=== PATIENT | male | born 1995 | race Caucasian/White ===

== ENCOUNTER 2016-09-12 09:15 | Emergency (ER) | payer OTHER ==
--- NOTE | 2016-09-12 10:37 | ED NURSING NOTES ---
Clinical Report - Nurses [facility] [address] [place] [address] 09/12/2016 9:17 Patient: JASMIN GOTTI TRIAGE Triage time 09:Sep 12 2016. Acuity: LEVEL 3. Chief Complaint: ABDOMINAL PAIN, NAUSEA, VOMITING and DIARRHEA and (Patient says he has been having epigastric pain for about a month with N/V, diarrhea and constipation comes and goes). 09:34 09/12/16. SEPSIS SCREEN: Sepsis Screen. Negative (no infection suspected/documented). NNEKA COMA SCORE: Nneka Coma Scale: 15- eyes open spontaneously (4); best verbal response- oriented x 4 (5); best motor response- obeys commands (6). --09:34 Catherine Alfaro R.N. 09:26 09/12/16. BP: 113/57 (regular adult cuff) taken on the left arm, while sitting. HR: 67. RR: 16 (regular). O2 saturation: 100% on room air. Temp: 97.6 F (oral). Pain level now: 4/10. Additional comments: epigastric usually more in mornings. --09:34 Catherine Alfaro R.N. Weight: 68 kg stated. Height/Length: 71 inches Per Patient. BMI: 20.9. --09:27 Catherine Alfaro R.N. Medications None. --09:27 Catherine Alfaro R.N. Allergies No Known Drug Allergy. --09:27 Catherine Alfaro R.N. History Arrived by private vehicle. Historian: patient. Accompanied by friend. Onset. (Month ago). He has had nausea, vomiting, diarrhea, constipation and abdominal pain. Last oral intake by patient was (last night at dinner). 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 PAST MEDICAL HX: Gastroesophageal reflux disease. ( Gastric ulcer hx). SOCIAL HX: Never smoker. History of heavy drug use: marijuana. Recently used drugs just prior to arrival. No alcohol use. No recent travel. No infectious disease exposure. No known contact with a sick individual. ABUSE ASSESSMENT: No report of abuse. --09:34 Catherine Alfaro R.N. PROBLEMS: Gastritis. Otitis Media. Hypertension. ADHD - Attention Deficit Hyperactivity Disorder. --09:27 Catherine Alfaro R.N. ADDITIONAL SURGERIES: no known surgeries. Interventions ID band on patient. To treatment room. --09:34 Catherine Alfaro R.N. PHYSICAL ASSESSMENT 09:35 09/12/16. Ambulatory to room. GENERAL / NEURO / PSYCH: Alert. Oriented X 4. HEENT: Mucous membranes are pink. RESPIRATORY: Respirations not labored. Breath sounds within normal limits. CVS: Capillary refill less than 2 seconds. GI / : Emesis noted. (yellow 24 hours ago). Abdomen soft and nontender. Bowel sounds within normal limits. Stool color normal. SKIN: Skin is warm. --09:36 Catherine Alfaro R.N. NURSING PROGRESS NOTES The plan of care for this patient has been created. Patient gowned. Head of bed elevated. Reassurance given. Two patient identifiers checked. Call light placed in reach. Side rails up x 1. Bed placed in lowest position. Brakes of bed on. Patient ready for evaluation- chart flagged and ED physician notified. --09:36 Catherine Alfaro R.N. 10:08 09/12/2016 GI COCKTAIL WHITE (Simethicone) PO Oral Suspension 30 mL given. Allergies verified and confirmed 5 rights. --10:08 Catherine Alfaro R.N. ( Patient feels much better at this time, he says he is now starting to get hungry.). --10:42 Catherine Alfaro R.N. 10:40 09/12/16. BP: 125/57 (regular adult cuff) taken on the left arm, while sitting. HR: 90. RR: 16 (regular). O2 saturation: 100% on room air. Pain level now: 0/10. --10:42 Catherine Alfaro R.N. 10:20 09/12/16. HR: 85. RR: 16 (regular). O2 saturation: 100% on room air. Pain level now: 0/10. --10:43 Catherine Alfaro R.N. DISPOSITION / DISCHARGE 11:02 09/12/2016 GI COCKTAIL WHITE PO Response: no adverse reaction pain is gone now. Symptoms have improved the patient feels better. --11:17 Catherine Alfaro R.N. Condition at departure: improved. No learning barriers present. Discharge instructions provided and reviewed with the patient. Reviewed medication(s) side effects, precautions and dosing information. Work note given. Patient verbalized understanding. Written instructions provided in B[place]udian. The patient was discharged by the physician. He was discharged home and accompanied by manager portable. He left the Emergency Department ambulatory and via private vehicle. Electrician Maintenance driving. --11:17 Catherine Alfaro R.N. 11:15 09/12/16. BP: 126/62 (regular adult cuff) taken on the left arm, while sitting. HR: 74. RR: 16. O2 saturation: 99% on room air. Temp: 98.3 F (oral). Pain level now: 06/22. --11:17 Catherine Alfaro R.N. Locked/Released at 09/12/2016 11:17 by Catherine Alfaro R.N.
--- NOTE | 2016-09-12 10:37 | ED ORDER SUMMARY ---
..... Patient: JASMIN GOTTI OrderSheet [facility] VisitID: [id number] [place] [address] 21y, M Registration Date/Time: 09/12/2016 ORDER SHEET Weight: 68.0 kg (stated) Allergies: No Known Drug Allergy GENERAL ORDERS: MEDICATION ORDERS: GI Cocktail WHITE PO 30 mL (NOW) (09:47 09/12/2016 Portillo Brown) (10:08 Allie Bell) IV FLUIDS: ORDER SHEET NOTES: [Electronically signed by Juan Oconnell Dr. (10:38 09/12/2016)] [Electronically signed by Catherine Alfaro R.N. (11:17 09/12/2016)] [Electronically locked/signed by Catherine Alfaro R.N. (11:17 09/12/2016)]
--- NOTE | 2016-09-12 10:37 | ED ORDER SUMMARY ---
..... Patient: JASMIN GOTTI OrderSheet [facility] VisitID: [id number] [place] [address] 21y, M Registration Date/Time: 09/12/2016 ORDER SHEET Weight: 68.0 kg (stated) Allergies: No Known Drug Allergy GENERAL ORDERS: MEDICATION ORDERS: GI Cocktail WHITE PO 30 mL (NOW) (09:47 09/12/2016 Portillo Brown) (10:08 Allie Bell) IV FLUIDS: ORDER SHEET NOTES: [Electronically signed by Juan Oconnell Dr. (10:38 09/12/2016)] [Electronically signed by Catherine Alfaro R.N. (11:17 09/12/2016)] [Electronically locked/signed by Catherine Alfaro R.N. (11:17 09/12/2016)]
--- NOTE | 2016-09-12 10:37 | ED CLINICAL REPORT ---
Clinical Report - Physicians/Mid Levels [facility] [address] [place] [address] 09/12/2016 9:17 Patient: JASMIN GOTTI Time Seen: 930. Arrived- By private vehicle. Historian- patient. HISTORY OF PRESENT ILLNESS Chief Complaint: ABDOMINAL PAIN. At its maximum, severity described as mild. When seen in the E.D., severity described as mild. It is described as dull. No radiation. It is described as located in the upper abdomen. This started past month and is still present (staying the same). It was gradual in onset and has been constant and waxing/waning but is not gone now. The patient has had nausea. No loss of appetite or diarrhea. He has had moderate vomiting (now resolved). The vomiting has occurred several times. No bilious emesis, feculent emesis, blood-tinged emesis, coffee-grounds emesis or frankly bloody emesis. No unusually dark emesis. No additional abdominal pain. No recent travel. Similar symptoms previously: Several times (reports hx of "ulcers"). Recent medical care: Not recently seen/assessed. REVIEW OF SYSTEMS No constipation, black stools, hematemesis or bloody stools. All systems otherwise negative, except as recorded above. PAST HISTORY See nurses notes. SOCIAL HISTORY Never smoker. History of occasional drug use: marijuana. No alcohol use. No recent travel. Is a local resident. FAMILY HISTORY (father with "stomach" probles but not sure exactly what). ADDITIONAL NOTES The nursing notes have been reviewed. PHYSICAL EXAM Vital Signs: 09/12/2016 09:26 BP: 113/57. HR: 67. RR: 16. O2 saturation: 100%. Temp: 97.6 F. Pain level now: 4/10. Blood pressure normal. Oxygen saturation normal. Appearance: Alert. Oriented X3. No acute distress. (long red hair. resting in bed. polite, cooperative). Eyes: Pupils equal, round and reactive to light. Eyes normal inspection. No pale conjunctivae. ENT: Ears normal. Nose normal. Pharynx normal. Neck: Normal inspection. Neck supple. CVS: Normal heart rate and rhythm. Heart sounds normal. Pulses normal. Respiratory: No respiratory distress. Breath sounds normal. Chest nontender. Abdomen: Soft and nontender. Bowel sounds normal. Skin: Skin warm and dry. Normal skin color. No rash. Normal skin turgor. Extremities: Extremities exhibit normal ROM. No lower extremity edema. PROGRESS AND PROCEDURES Course of Care: the patient is a pleasant 23-year-old male presenting for evaluation of epigastric abdominal pain. Symptoms have been ongoing for the past month and dull in nature. Patient reports history of peptic ulcer disease. Because of the patient's past history and relativelylow severity of symptoms, offered patient an extensive laboratory workup and ultrasound versus symptom control alone. Patientrequested symptom treatment home. I discussion patient in regards to further workup and studies if he symptoms do not significantly improve with the medications provided here in the emergency department. Patient was agreeable to this. Patient was reevaluated after the GI cocktail as been given. Patient reports significant improvement with his symptoms and does not have any pain anymore. Vital signs here in the emergency Department unremarkable. No signs of gastrointestinal bleeding. No signs of anemia. Vital signs are unremarkable. Do not feel patient requires further emergency department workup for evaluation. Had long discussion with patient in regards tosymptoms of GI bleed and reasons to return to the emergency department including his diagnosis, workup, home care, and follow-up. All questions have been answered. Patient expressed understanding of these instructions and was agreeable to them. Prior to patient's discharge from the emergency department his abdominal exam is benign and patient is resting in bed and in no acute distress. Patient is requesting a note from work today. Disposition: Discharged. Condition: good. CLINICAL IMPRESSION Acute epigastric abdominal pain. 09/12/2016 09:26 BP: 113/57. HR: 67. RR: 16. O2 saturation: 100%. Temp: 97.6 F. Pain level now: 4/10. Blood pressure normal. Oxygen saturation normal. Acute gastric ulcer disease. No GI bleeding or perforation. INSTRUCTIONS Off work today. Warnings: GENERAL WARNINGS: Return or contact your physician immediately if your condition worsens or changes unexpectedly, if not improving as expected, or if other problems arise. SPECIFICALLY, return if you develop pain, fever, vomiting, the inability to keep fluids down, blood in vomitus, blood in diarrhea, fainting or lightheadedness. coffee-ground vomiting or black tarry colored stool. Your Current Medications: CONTINUE TAKING THE FOLLOWING MEDICATIONS: None*. Prescription Medications: Pepcid 20 mg: take 1 orally every 12 hours as needed for indigestion, upset stomach or heartburn. Dispense thirty (30). No refills. Substitution is permissible. OTC Medications: Tums chewable tabs (available over the counter): take according to label instructions. Follow-up: Return to the emergency department as needed. Follow up with your doctor in three days. Reason for referral: rechecked it is concerns. Summary of care provided to patient via paper. Screening today revealed the patient's blood pressure to be in the normal range. The patient should follow up with a primary care provider for blood pressure management. Understanding of the discharge instructions verbalized by patient. (Electronically signed by Juan Oconnell Dr. 09/12/2016 10:38)
--- NOTE | 2016-09-12 10:37 | ED NURSING NOTES ---
Clinical Report - Nurses [facility] [address] [place] [address] 09/12/2016 9:17 Patient: JASMIN GOTTI TRIAGE Triage time 09:Sep 12 2016. Acuity: LEVEL 3. Chief Complaint: ABDOMINAL PAIN, NAUSEA, VOMITING and DIARRHEA and (Patient says he has been having epigastric pain for about a month with N/V, diarrhea and constipation comes and goes). 09:34 09/12/16. SEPSIS SCREEN: Sepsis Screen. Negative (no infection suspected/documented). NNEKA COMA SCORE: Nneka Coma Scale: 15- eyes open spontaneously (4); best verbal response- oriented x 4 (5); best motor response- obeys commands (6). --09:34 Catherine Alfaro R.N. 09:26 09/12/16. BP: 113/57 (regular adult cuff) taken on the left arm, while sitting. HR: 67. RR: 16 (regular). O2 saturation: 100% on room air. Temp: 97.6 F (oral). Pain level now: 4/10. Additional comments: epigastric usually more in mornings. --09:34 Catherine Alfaro R.N. Weight: 68 kg stated. Height/Length: 71 inches Per Patient. BMI: 20.9. --09:27 Catherine Alfaro R.N. Medications None. --09:27 Catherine Alfaro R.N. Allergies No Known Drug Allergy. --09:27 Catherine Alfaro R.N. History Arrived by private vehicle. Historian: patient. Accompanied by friend. Onset. (Month ago). He has had nausea, vomiting, diarrhea, constipation and abdominal pain. Last oral intake by patient was (last night at dinner). 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 PAST MEDICAL HX: Gastroesophageal reflux disease. ( Gastric ulcer hx). SOCIAL HX: Never smoker. History of heavy drug use: marijuana. Recently used drugs just prior to arrival. No alcohol use. No recent travel. No infectious disease exposure. No known contact with a sick individual. ABUSE ASSESSMENT: No report of abuse. --09:34 Catherine Alfaro R.N. PROBLEMS: Gastritis. Otitis Media. Hypertension. ADHD - Attention Deficit Hyperactivity Disorder. --09:27 Catherine Alfaro R.N. ADDITIONAL SURGERIES: no known surgeries. Interventions ID band on patient. To treatment room. --09:34 Catherine Alfaro R.N. PHYSICAL ASSESSMENT 09:35 09/12/16. Ambulatory to room. GENERAL / NEURO / PSYCH: Alert. Oriented X 4. HEENT: Mucous membranes are pink. RESPIRATORY: Respirations not labored. Breath sounds within normal limits. CVS: Capillary refill less than 2 seconds. GI / : Emesis noted. (yellow 24 hours ago). Abdomen soft and nontender. Bowel sounds within normal limits. Stool color normal. SKIN: Skin is warm. --09:36 Catherine Alfaro R.N. NURSING PROGRESS NOTES The plan of care for this patient has been created. Patient gowned. Head of bed elevated. Reassurance given. Two patient identifiers checked. Call light placed in reach. Side rails up x 1. Bed placed in lowest position. Brakes of bed on. Patient ready for evaluation- chart flagged and ED physician notified. --09:36 Catherine Alfaro R.N. 10:08 09/12/2016 GI COCKTAIL WHITE (Simethicone) PO Oral Suspension 30 mL given. Allergies verified and confirmed 5 rights. --10:08 Catherine Alfaro R.N. ( Patient feels much better at this time, he says he is now starting to get hungry.). --10:42 Catherine Alfaro R.N. 10:40 09/12/16. BP: 125/57 (regular adult cuff) taken on the left arm, while sitting. HR: 90. RR: 16 (regular). O2 saturation: 100% on room air. Pain level now: 0/10. --10:42 Catherine Alfaro R.N. 10:20 09/12/16. HR: 85. RR: 16 (regular). O2 saturation: 100% on room air. Pain level now: 0/10. --10:43 Catherine Alfaro R.N. DISPOSITION / DISCHARGE 11:02 09/12/2016 GI COCKTAIL WHITE PO Response: no adverse reaction pain is gone now. Symptoms have improved the patient feels better. --11:17 Catherine Alfaro R.N. Condition at departure: improved. No learning barriers present. Discharge instructions provided and reviewed with the patient. Reviewed medication(s) side effects, precautions and dosing information. Work note given. Patient verbalized understanding. Written instructions provided in Uruguayan. The patient was discharged by the physician. He was discharged home and accompanied by commercial credit head. He left the Emergency Department ambulatory and via private vehicle. Offline Cutter driving. --11:17 Catherine Alfaor R.N. 11:15 09/12/16. BP: 126/62 (regular adult cuff) taken on the left arm, while sitting. HR: 74. RR: 16. O2 saturation: 99% on room air. Temp: 98.3 F (oral). Pain level now: 06/22. --11:17 Catherine Alfaro R.N. Locked/Released at 09/12/2016 11:17 by Catherine Alfaro R.N.
--- NOTE | 2016-09-12 11:18 | ED DISCHARGE INSTRUCTIONS ---
Patient: JASMIN GOTTI General Instructions [facility] VisitID: [id number] [place] [address] 21y, M Registration Date/Time: 09/12/2016 Acute epigastric abdominal pain. 09/12/2016 09:26 BP: 113/57. HR: 67. RR: 16. O2 saturation: 100%. Temp: 97.6 F. Pain level now: 4/10. Blood pressure normal. Oxygen saturation normal. Acute gastric ulcer disease. No GI bleeding or perforation. INSTRUCTIONS Off work today. Warnings: GENERAL WARNINGS: Return or contact your physician immediately if your condition worsens or changes unexpectedly, if not improving as expected, or if other problems arise. SPECIFICALLY, return if you develop pain, fever, vomiting, the inability to keep fluids down, blood in vomitus, blood in diarrhea, fainting or lightheadedness. coffee-ground vomiting or black tarry colored stool. Your Current Medications: CONTINUE TAKING THE FOLLOWING MEDICATIONS: None*. Prescription Medications: Pepcid 20 mg: take 1 orally every 12 hours as needed for indigestion, upset stomach or heartburn. Dispense thirty (30). No refills. Substitution is permissible. OTC Medications: Tums chewable tabs (available over the counter): take according to label instructions. Follow-up: Return to the emergency department as needed. Follow up with your doctor in three days. Reason for referral: rechecked it is concerns. Summary of care provided to patient via paper. Screening today revealed the patient's blood pressure to be in the normal range. The patient should follow up with a primary care provider for blood pressure management. Understanding of the discharge instructions verbalized by patient. ADDITIONAL INFORMATION Abdominal Pain,Uncertain Cause [Male] Based on your visit today, the exact cause of your abdominalpain is not clear. Your exam and tests do not indicate a dangerous cause at this time. However, the signs of a serious problem may take more time to appear. Although your evaluation was reassuring today, sometimes early in the course of many conditions, exam and lab tests can appear normal. Therefore, it is important for you to watch for any new symptoms or worsening of your condition. Causes It may not be obvious what caused your symptoms. Pay attention to things that do seem to make your symptoms worse or better and discuss this with your doctor when you follow up. Diagnosis The evaluation of abdominal pain in the emergency department may onlyrequire an exam by the doctor or it may include blood, urine or imaging studies, depending on many factors. Sometimes exams and tests can identify a cause but in many cases, a clear cause is not found. Further testing at follow up visits may help to suggest a clear diagnosis. Home Care Rest as much as possible until your next exam. Try to avoid any medications (unless otherwise directed by your doctor), foods, activities, or other factors that you may have contributed to your symptoms. Try to eat foods that you know that you have tolerated well in the past. Certain diets may be recommended for some conditions that cause abdominal pain. However, since the cause of your symptoms may not be clear, discuss your diet more with your primary care provider or specialist for further recommendations. Eating several small meals per day as opposed to 2 or 3 larger meals may help. Monitor closely for anything that may make your symptoms worse or better. Pay close attention to symptoms below that may indicate worsening of your condition. Follow Up and Precautions See your doctoras instructed or sooneror if your symptoms are not improving.In some cases, you may need more testing. When to Seek Medical Attention Contact your doctor or see medical attention ifany of the following occur: Pain is becoming worse You are unable to take your medications due to excessive vomiting Swelling of the abdomen Fever of 100.4F (38C) or higher, or as directed by your health care provider Blood in vomit or bowel movements (dark red or black color) Jaundice (yellow color of eyes and skin) New onset of weakness, dizziness or fainting New onset of chest, arm, back, neck or jaw pain Gastritis Versus Ulcer (No Antibiotic Tx) The symptoms of gastritis and peptic ulcer are very similar. Both can cause a dull ache or burning pain in the upper abdomen. Other symptoms include nausea, vomiting, loss of appetite, and belching or bloating. Blood in the vomit or stools (red or black) is a sign of bleeding in the stomach. This requires immediate medical attention. A Peptic Ulcer is an open sore in the lining of the stomach or duodenum (upper intestine). The most common cause of peptic ulcer disease is a bacterial infection (H pylori) in the stomach. Another common cause is taking anti-inflammatory medications (such as ibuprofen, prednisone, and aspirin). Gastritis is an irritation of the stomach lining. It can be acute (recent) or chronic (lasting a long time). Gastritis can be caused by overuse of alcohol or anti-inflammatory medications (such as aspirin, ibuprofen, prednisone). H pyloriinfection can also cause chronic gastritis. Tests for H pyloriare used to screen for bacterial infection. If no infection is found, ulcer and gastritis can be treated by stopping the cause, such as anti-inflammatory medications, alcohol, caffeine, and tobacco, and treating with antacids plus an acid edwrad medication. If H pylori infection is found, antibiotics will be prescribed along with an acid edward. Persons 55 years and older may undergo other tests before treatment is started. Two common tests are used to evaluate your symptoms. An upper GI series is an x-ray taken after you drink a chalky liquid called barium. This coats the stomach and allows an ulcer to show up on the x-ray. Another test is called endoscopy during which a long thin tube called an endoscope is passed down your throat to the stomach. A camera at the end of the scope allows the doctor to view inside the stomach to check the cause of your symptoms. Home Care: Take the prescribed acid edward medication for the full course of treatment even if you begin to feel better sooner. This medication can take up to several days to fully control your symptoms. If you cant afford the prescribed medication, you can try [id number] acid blockers, such as Pepcid AC, Tagamet, Zantac, or Aciphex. If these do not relieve your symptoms, a stronger acid-edward can be tried, such as Prilosec OTC. If you have been prescribed an antibiotic to treat H pyloriinfection, finish the full course of medication. Do so even if you begin to feel better sooner. If you stop the medication too soon, the infection can return and be harder to treat. You can use antacids, such as Tums, Rolaids, Mylanta, or Maalox, for pain. This will be useful the first few days after starting acid blockers when the blockers havent started working yet. Follow the directions on the label. Liquid antacids may work better than tablets. Note that antacids can interfere with absorption of certain medications. Specifically, do not take Tagamet (cimetidine), Zantac (ranitidine), or Carafate (sucralfate) within 1 hour of taking an antacid. Talk with your pharmacist if you have any questions. Although foods do not cause an ulcer, symptoms can be worsened by certain foods. Limit or avoid fatty, fried, and spicy foods, as well as coffee, chocolate, mint, and foods with high acid content such as tomatoes and citrus fruit and juices (orange, grapefruit, lemon). Avoid alcohol, caffeine, and tobacco, which can delay healing. Avoid aspirin and anti-inflammatory medications such as ibuprofen (Advil, Motrin) and naproxen (Naprosyn, Aleve). Acetaminophen (Tylenol) is safe to use. Do not take more than the amount listed on the label. Follow Up with your doctor or as advised. Further testing may be needed. If you do not begin to improve over the next 4 days, contact your doctor. If you had tests, youll be notified of any new findings that affect your care. Get Prompt Medical Attention if any of the following occur: Stomach pain gets worse or moves to the lower right abdomen (appendix area) Chest pain appears or gets worse, or spreads to the back, neck, shoulder, or arm Frequent vomiting (cant keep down liquids) Blood in the stool or vomit (red or black in color) Feeling weak or dizzy, fainting, or trouble breathing Fever of 100.4F (38C) or higher, or as directed by your healthcare provider Famotidine Oral tablet What is this medicine? FAMOTIDINE (fa KAMRYN ti robby) is a type of antihistamine that blocks the release of stomach acid. It is used to treat stomach or intestinal ulcers. It can also relieve heartburn from acid reflux. How should I use this medicine? Take this medicine by mouth with a glass of water. Follow the directions on the prescription label. If you only take this medicine once a day, take it at bedtime. Take your doses at regular intervals. Do not take your medicine more often than directed. Talk to your casing operator regarding the use of this medicine in children. Special care may be needed. What side effects may I notice from receiving this medicine? Side effects that you should report to your doctor or health animal care supervisor as soon as possible: agitation, nervousness confusion hallucinations skin rash, itching Side effects that usually do not require medical attention (report to your doctor or health animal care supervisor if they continue or are bothersome): constipation diarrhea dizziness headache What may interact with this medicine? delavirdine itraconazole ketoconazole What if I miss a dose? If you miss a dose, take it as soon as you can. If it is almost time for your next dose, take only that dose. Do not take double or extra doses. Where should I keep my medicine? Keep out of the reach of children. Store at room temperature between 15 and 30 degrees C (59 and 86 degrees F). Do not freeze. Throw away any unused medicine after the expiration date. What should I tell my health care provider before I take this medicine? They need to know if you have any of these conditions: kidney or liver disease trouble swallowing an unusual or allergic reaction to famotidine, other medicines, foods, dyes, or preservatives or trying to get breast-feeding What should I watch for while using this medicine? Tell your doctor or health animal care supervisor if your condition does not start to get better or if it gets worse. Finish the full course of tablets prescribed, even if you feel better. Do not take with aspirin, ibuprofen or other antiinflammatory medicines. These can make your condition worse. Do not smoke cigarettes or drink alcohol. These cause irritation in your stomach and can increase the time it will take for ulcers to heal. If you get black, tarry stools or vomit up what looks like coffee grounds, call your doctor or health animal care supervisor at once. You may have a bleeding ulcer. You have been given the following additional information: Abdominal Pain, Unknown Cause, (Male) Gastritis Vs. Ulcer Famotidine Oral tablet Off work today. (Electronically signed by Juan Oconnell Dr. 09/12/2016 10:38)
--- NOTE | 2016-09-12 11:18 | ED MED RECONCILIATION SUMMARY ---
Patient: JASMIN GOTTI Medication Reconciliation Report [facility] VisitID: [id number] [place] [address] 21y, M Registration Date/Time: 09/12/2016 Weight: 68.0 kg Height/Length: 71 in. BMI: 20.9 ALLERGIES: No Known Drug Allergy The patient's Home Medications are listed below: NONE. The source(s) of the original Home Medication information: Not obtained. The following Medications were given to the patient in the Emergency Department: GI COCKTAIL WHITE [PO] PO 30 mL, administered: 09/12/2016 10:08:00 AM The following Medications were prescribed to the patient: Pepcid 20 mg: take 1 orally every 12 hours as needed for indigestion, upset stomach or heartburn. Dispense thirty (30). No refills. Substitution is permissible. -- Juan Oconnell Dr. Tumlliia chewable tabs (available over the counter): take according to label instructions. -- Juan Oconnell Dr.
--- NOTE | 2016-09-12 11:18 | ED MAR SUMMARY ---
..... Medication Administration Record [facility] [address] [place] [address] Patient: JASMIN GOTTI Visit ID: [id number] 21y, M Weight: 68.0 kg Height/Length: 71 in BMI: 20.9 ALLERGIES: No Known Drug Allergy Given 10:08 09/12/2016 Catherine Alfaro R.N. Medication Administered: GI COCKTAIL WHITE [PO] (SIMETHICONE), Dose: 30 mL Oral Suspension PO. Medication Ordered: GI Cocktail WHITE PO 30 mL (NOW).
--- NOTE | 2016-09-12 11:18 | ED MED RECONCILIATION SUMMARY ---
Patient: JASMIN GOTTI Medication Reconciliation Report [facility] VisitID: [id number] [place] [address] 21y, M Registration Date/Time: 09/12/2016 Weight: 68.0 kg Height/Length: 71 in. BMI: 20.9 ALLERGIES: No Known Drug Allergy The patient's Home Medications are listed below: NONE. The source(s) of the original Home Medication information: Not obtained. The following Medications were given to the patient in the Emergency Department: GI COCKTAIL WHITE [PO] PO 30 mL, administered: 09/12/2016 10:08:00 AM The following Medications were prescribed to the patient: Pepcid 20 mg: take 1 orally every 12 hours as needed for indigestion, upset stomach or heartburn. Dispense thirty (30). No refills. Substitution is permissible. -- Juan Oconnell Dr. Tumlilia chewable tabs (available over the counter): take according to label instructions. -- Juan Oconnell Dr.
--- NOTE | 2016-09-12 11:18 | ED MAR SUMMARY ---
..... Medication Administration Record [facility] [address] [place] [address] Patient: JASMIN GOTTI Visit ID: [id number] 21y, M Weight: 68.0 kg Height/Length: 71 in BMI: 20.9 ALLERGIES: No Known Drug Allergy Given 10:08 09/12/2016 Catherine Alfaro R.N. Medication Administered: GI COCKTAIL WHITE [PO] (SIMETHICONE), Dose: 30 mL Oral Suspension PO. Medication Ordered: GI Cocktail WHITE PO 30 mL (NOW).
== END 2016-09-12 11:17 | disposition home or self-care (01) ==
LOC: ED SRH 09:15
DX: K25.3 Acute gastric ulcer without hemorrhage or perforation (principal); R10.13 Epigastric pain

== ENCOUNTER 2016-11-25 10:08 | Emergency (ER) | payer OTHER ==
--- NOTE | 2016-11-25 13:22 | DIAGNOSTIC IMAGING REPORT ---
PROCEDURE: ABDOMEN/PELVIS WITH CONTRAST CLINICAL INDICATION: Rectal bleeding, no pain. TECHNIQUE: 125 ml of Isovue 300 were injected intravenously and axial images were obtained of the abdomen and pelvis with sagittal and coronal reformations. COMPARISON: None. FINDINGS: ABDOMEN: Clear lung bases. Normal sized heart. No hiatal hernia. The liver, gallbladder, adrenal glands, kidneys, pancreas and spleen are normal. The abdominal aorta is normal in its course and caliber. No atherosclerosis. There are no suspicious calcifications, retroperitoneal adenopathy or masses. The stomach , upper bowel loops, and mesentery are normal. Intact anterior abdominal wall. No free fluid or inflammation. PELVIS: The appendix and pelvic small bowel loops are normal. Small amount of normal solid stool in the cecum and in the proximal portion of the rectum. The rest of the colon is completely decompressed. No significant pericolonic inflammation. The prostate gland, seminal vesicles, urinary bladder, and pelvic vessels are normal. No adenopathy, free fluid, or pelvic mass. Intact osseous structures. IMPRESSION: 1. Near complete decompression of the colon without significant inflammation. This is nonspecific, can be physiologic, but can also be seen in response to occult hemorrhage. No CT evidence of acute colitis or diverticulosis. Occult inflammatory process cannot be excluded with the colon decompressed. Colonoscopy is recommended. 2. Otherwise unremarkable CT of the abdomen and pelvis. 3. Discussed with Dr. Landis in the emergency room. All CT scans at this facility use dose modulation, iterative reconstruction, and/or weight-based dosing when appropriate to reduce radiation dose to as low as reasonably achievable.
--- NOTE | 2016-11-25 15:40 | ED ORDER SUMMARY ---
..... Patient: JASMIN GOTTI OrderSheet [facility] VisitID: [id number] [place] [address] 21y, M Registration Date/Time: 11/25/2016 ORDER SHEET Weight: 68.0 kg (stated) Allergies: No Known Drug Allergy GENERAL ORDERS: CBC w Diff Urgent (11:11/25/2016 Racheal Brown) (Ack 11:12 TBergley) (11:21 DDean R.N.) CMP Urgent (11:11/25/2016 Racheal Brown) (Ack 11:12 TBergley) (11:21 DDean R.N.) UA-Culture if indicated Urgent (11:11/25/2016 Racheal Brown) (Ack 11:12 TBergley) (14:50 LAbe R.N.) PT with INR Urgent (11:11/25/2016 Racheal Brown) (Ack 11:12 TBergley) (11:21 DDean R.N.) PTT Urgent (11:11/25/2016 Racheal Brown) (Ack 11:12 TBergley) (11:21 DDean R.N.) CT Abd/Pel w Cont (No) (N/A) Urgent (12:11/25/2016 Racheal Brown) (Ack 12:21 TBergley) (14:50 LAbe R.N.) MEDICATION ORDERS: IV FLUIDS: Famotidine IV 20 mg/50mL (NOW) (11:11/25/2016 Racheal Brown) (Ack 11:39 Valorie R.N.) (11:51 Valorie R.N.) IV Saline Lock (11:11/25/2016 Racheal Brown) (11:39 Valorie R.N.) ORDER SHEET NOTES: [Electronically signed by Mariya Manzo R.N. (17:33 11/25/2016)] [Electronically signed by Yoshi Landis Dr. (23:16 11/26/2016)] [Electronically locked/signed by Mariya Manzo R.N. (17:33 11/25/2016)]
--- NOTE | 2016-11-25 15:40 | ED NURSING NOTES ---
Clinical Report - Nurses [facility] [address] [place] [address] 11/25/2016 10:09 Patient: JASMIN GOTTI TRIAGE Triage time 10:19. Acuity: LEVEL 3. Chief Complaint: RECTAL BLEED. Alert. No acute distress. YANIV COMA SCORE: [place] Coma Scale: 15- eyes open spontaneously (4); best verbal response- oriented x 4 (5); best motor response- obeys commands (6). --10:24 Mariya Manzo R.N. 10:19 11/25/16. BP: 119/65. HR: 60. RR: 18. O2 saturation: 100%. Temp: 97.6 F. Pain level now: 06/22. --10:24 Mariya Manzo R.N. Weight: 68 kg stated. Height/Length: 72 inches Per Patient. BMI: 20.3. --10:21 Mariya Manzo R.N. Medications Acetaminophen Oral. --10:20 Mariya Manzo R.N. Medication/allergy information source: the patient. --10:24 Mariya Manzo R.N. Allergies No Known Drug Allergy. --10:20 Mariya Manzo R.N. History Arrived by private vehicle. Historian: patient. Accompanied by family. Primary physician (none). This started today. SOCIAL HX: Never smoker. Occasional alcohol use. (recently). History of drug use: marijuana. FALL RISK ASSESSMENT: Fall risk assessment completed. No fall risk identified. FUNCTIONAL ASSESSMENT: Functional assessment: no impairments noted. LEARNING NEEDS ASSESSMENT: The learning needs assessment revealed no barriers. --10:24 Mariya Manzo R.N. PROBLEMS: Peptic Ulcer Disease. Abdominal Pain. Gastroesophageal Reflux Disease. Gastritis. Otitis Media. Hypertension. Immunizations. ADHD - Attention Deficit Hyperactivity Disorder. --10:21 Mariya Manzo R.N. ADDITIONAL SURGERIES: no known surgeries. Assessment GENERAL / NEURO / PSYCH: Alert. Oriented X 4. Appears in no acute distress. Patient appears calm and cooperative. RESPIRATORY: Respirations not labored. SKIN: Skin is warm and dry. --10:24 Mariya Manzo R.N. Interventions ID band on patient. To treatment room. --10:24 Mariya Manzo R.N. PHYSICAL ASSESSMENT 10:53 11/25/16. Ambulatory to room. Patient gowned. GENERAL / NEURO / PSYCH: Alert. Oriented X 4. Appears in no acute distress. RESPIRATORY: Respirations not labored. SKIN: Skin is warm and dry. --10:53 Mariya Manzo R.N. NURSING PROGRESS NOTES 10:53 11/25/16. Patient gowned. Head of bed elevated. Reassurance given. Call light placed in reach. Side rails up x 1. Bed placed in lowest position. Brakes of bed on. --10:53 Mariya Manzo R.N. 10:54 11/25/2016 Site #1 started via IV in the right antecubital space with an 18g angiocath, with aseptic technique and good blood return; one attempt. Blood drawn: rainbow set. Labeled in the presence of the patient and sent to the lab. Saline lock flushed with 10 mL saline (Blood Banded). --10:54 Mariya Manzo R.N. 11:51 11/25/2016 Started 20 mg of Famotidine IVPB in bag #1 50 mL; at 150 mL/hr over 20 minute(s) via site #1; Allergies verified and confirmed 5 rights. IV patency established. IV site checked: no pain, redness, or swelling. IV flushed thoroughly pre- and post-medication administration. --11:51 Mariya Manzo R.N. 12:10 11/25/16. The patient is resting quietly. Overall patient status is the same- he states feels the same. RESPIRATORY: No respiratory distress. SKIN: Skin is warm and dry. --12:10 Mariya Manzo R.N. 12:10 11/25/16. BP: 115/58. HR: 86. RR: 16. O2 saturation: 100% on room air. --12:10 Mariya Manzo R.N. 12:10. :patient confirmed. Clean catch urine collected; sample sent to lab. Specimen labeled in the presence of the patient (voided 300 ml per urinal). --12:32 Mariya Manzo R.N. 13:50. Informed about reason for wait (discharge plan). --14:25 Mariya Manzo R.N. 14:50. The patient is resting quietly. --16:34 Mariya Manzo R.N. 15:50. The patient is calm and resting quietly. Overall patient status is the same- he states feels the same. RESPIRATORY: No respiratory distress. SKIN: Skin is warm and dry. --16:35 Mariya Manzo R.N. DISPOSITION / DISCHARGE Departure time: 1550. Condition at departure: stable. No learning barriers present. Discharge instructions provided and reviewed with the patient. Patient verbalized understanding. Written instructions provided in [place]. The patient was discharged home and accompanied by collection card clerk. He left the Emergency Department ambulatory and via private vehicle. FALL RISK ASSESSMENT: Fall risk assessment completed. No fall risk identified. --16:36 Mariya Manzo R.N. 15:50 11/25/16. BP: 117/59. HR: 65. RR: 16. O2 saturation: 100%. Pain level now: 07/23. --16:36 Mariya Manzo R.N. Locked/Released at 11/25/2016 17:33 by Mariya Manzo R.N.
--- NOTE | 2016-11-25 15:40 | ED CLINICAL REPORT ---
Clinical Report - Physicians/Mid Levels [facility] [address] [place] [address] 11/25/2016 10:09 Patient: JASMIN GOTTI Time Seen: 10:39; initial patient contact. Arrived- By private vehicle. Historian- patient. HISTORY OF PRESENT ILLNESS Chief Complaint: RECTAL BLEEDING. This started today, has been moderate and is still present but is better now. It was abrupt in onset. Not constant. The patient has had rectal bleeding but not had dark stools, rectal pain or hard stools. No constipation, nausea, vomiting, diarrhea or abdominal pain. Similar symptoms previously: None. Recent medical care: Not recently seen/assessed. REVIEW OF SYSTEMS No dizziness, fainting episodes, weakness, fever or hematuria. No chills. No complaint of rectal foreign body. He has had no rectal intercourse. All systems otherwise negative, except as recorded above. PAST HISTORY Peptic Ulcer Disease. Abdominal Pain. Gastroesophageal Reflux Disease. Gastritis. Otitis Media. Hypertension. ADHD. SOCIAL HISTORY Never smoker. ADDITIONAL NOTES The nursing notes have been reviewed. PHYSICAL EXAM Vital Signs: 11/25/2016 10:19 BP: 119/65. HR: 60. RR: 18. O2 saturation: 100%. Temp: 97.6 F. Pain level now: 110. Have been reviewed as normal. Appearance: Alert. Oriented X3. No acute distress. Eyes: Eyes normal inspection. ENT: Pharynx normal. Neck: Normal inspection. CVS: Normal heart rate and rhythm. Heart sounds normal. Respiratory: No respiratory distress. Breath sounds normal. Abdomen: Soft and nontender. Bowel sounds normal. No organomegaly. No mass. Rectal: Strongly heme-positive stool; blood streaks present in the stool; hemoccult food quality tester check passed. (POC test reference range: negative). Brown, bloody stool. Rectal exam nontender. Skin: Skin warm and dry. Normal skin color. No rash. Neuro: Oriented X 3. LABS, X-RAYS, AND EKG Abdominal CT: 1. Near complete decompression of the colon without significant inflammation. This is nonspecific, can be physiologic, but can also be seen in response to occult hemorrhage. No CT evidence of acute colitis or diverticulosis. Occult inflammatory process cannot be excluded with the colon decompressed. Colonoscopy is recommended. 2. Otherwise unremarkable CT of the abdomen and pelvis. Study type: abdomen and pelvis. Abdominal CT performed with IV contrast. Prior studies were not available for comparison. The study was interpreted by the radiologist and discussed with the radiologist. Interpretation time: 13:26. Laboratory Tests: UA-Culture if indicated: (LUCIEN: 11/25/2016 12:05) ( [facility] 11/25/2016 12:32) Final results Test Result Flag Units (Reference) URINE COLOR YELLOW URINE APPEARANCE CLEAR URINE GLUCOSE NEGATIVE (NEGATIVE) URINE BILIRUBIN NEGATIVE (NEGATIVE) URINE KETONE NEGATIVE (NEGATIVE) URINE SPECIFIC GRAVITY <= 1.005 L (1.010-1.030) URINE PH 6.0 (5.0-8.0) URINE PROTEIN NEGATIVE (NEGATIVE) URINE UROBILINOGEN 0.2 EU/dL (0.2-1.0) URINE NITRITE NEGATIVE (NEGATIVE) URINE BLOOD NEGATIVE (NEGATIVE) URINE LEUK ESTERASE NEGATIVE (NEGATIVE) URINE RBC RARE rbc/hpf (0-1) URINE WBC NONE SEEN wbc/hpf (0-1) URINE EPITHELIAL CELLS 0-1 EPI/hpf (0-5) URINE BACTERIA NONE SEEN (NONE SEEN) URINE COMMENT CULT NOT INDICATED URINE CULTURES ARE SET-UP BASED ON THE FOLLOWING CRITERIA:POSITIVE NITRITEPOSITIVE LEUKOCYTE ESTERASEGREATER THAN 10 WHITE BLOOD CELLSMODERATE (2+) OR GREATER BACTERIA CBC w Diff: (LUCIEN: 11/25/2016 10:40) ( [facility] 11/25/2016 11:18) Final results Test Result Flag Units (Reference) WHITE BLOOD COUNT 5.4 K/uL (4.5-11.5) RED BLOOD COUNT 5.44 M/uL (4.50-5.90) HEMOGLOBIN 17.1 gm/dL (13.5-17.5) HEMATOCRIT 50.3 % (41.0-53.0) MEAN CELL VOLUME 93 fL (80-100) MEAN CORPUSCULAR HGB 32 pg (26-34) MEAN CORPUSCULAR HGB CONC 34 g/dL (31-37) RED CELL DISTRIBUTION WIDTH 13.1 % (11.6-14.8) PLATELET COUNT 174 K/uL (150-400) NEUTROPHIL % 65.5 % (50-75) LYMPH % 23.9 L % (25-40) MONO % 7.6 % (3-14) EOSINOPHIL % 2.5 % (0-4) BASOPHIL % 0.5 % (0-2) PT with INR: (LUCIEN: 11/25/2016 10:40) ( [facility] 11/25/2016 11:28) Final results Test Result Flag Units (Reference) INR 1.1 (0.8-1.2) Low Intensity Therapy: INR 1.5-2.0 PT range 18.5-23.1Mod.Intensity Therapy: INR 2.0-3.0 PT range 23.1-31.5High Intensity Therapy: INR 2.5-3.5 PT range 27.4-35.5High Intensity Therapy 2: INR 3.0-4.0 PT range 31.5-39.3 APTT 30 SECONDS (24-34) CMP: (LUCIEN: 11/25/2016 10:40) ( [facility] 11/25/2016 11:24) Final results Test Result Flag Units (Reference) GLUCOSE 101 mg/dL (70-110) BUN 18 mg/dL (7-18) CREATININE 1.0 mg/dL (0.6-1.3) Estimated GFR >60 mL/min Estimated GFR- >60 mL/min Note: Persistent reduction over 3 months in eGFR<60 mL/min/1.73 m2 defines CKD. Patients with eGFR values>=60 mL/min/1.73 m2 may also have CKD if evidence ofpersistent proteinuria. Additional information may be foundat www.kidney.org. SODIUM 141 mmol/L (136-145) POTASSIUM 3.8 mmol/L (3.5-5.1) CHLORIDE 106 mmol/L (98-107) CARBON DIOXIDE 28 mmol/L (21-32) CALCIUM 9.0 mg/dL (8.5-10.1) TOTAL PROTEIN 7.6 g/dL (6.4-8.2) ALBUMIN 4.4 g/dL (3.3-5.0) BILIRUBIN, TOTAL 0.7 mg/dL (0.0-1.0) ALKALINE PHOSPHATASE 111 U/L (46-116) AST (SGOT) 16 U/L (15-37) ALT (SGPT) 18 U/L (12-78) . PROGRESS AND PROCEDURES Discussed case with on-call health care provider, (Dr. Cortes, [place] for outpt colonoscopy). Reviewed test results and need for additional work-up. Health care provider will see patient in office. Disposition: Discharged home in good and improved condition. Condition: good. CLINICAL IMPRESSION Minor GI bleed with hematochezia. INSTRUCTIONS Warnings: GENERAL WARNINGS: Return or contact your physician immediately if your condition worsens or changes unexpectedly, if not improving as expected, or if other problems arise. If the bleeding worsens or if you feel faint. Your Current Medications: CONTINUE TAKING THE FOLLOWING MEDICATIONS: Acetaminophen Oral. Follow-up: Screening today revealed the patient's blood pressure to be in the normal range. Follow-up with: [facility], , , [address], , [place], [address] Follow up in about four. Reason for referral: Discuss the need for surgical or gastroenterology referral for colonoscopy. (Electronically signed by Yoshi Landis Dr. 11/26/2016 23:16)
--- NOTE | 2016-11-25 15:40 | ED CLINICAL REPORT ---
Clinical Report - Physicians/Mid Levels [facility] [address] [place] [address] 11/25/2016 10:09 Patient: JASMIN GOTTI Time Seen: 10:39; initial patient contact. Arrived- By private vehicle. Historian- patient. HISTORY OF PRESENT ILLNESS Chief Complaint: RECTAL BLEEDING. This started today, has been moderate and is still present but is better now. It was abrupt in onset. Not constant. The patient has had rectal bleeding but not had dark stools, rectal pain or hard stools. No constipation, nausea, vomiting, diarrhea or abdominal pain. Similar symptoms previously: None. Recent medical care: Not recently seen/assessed. REVIEW OF SYSTEMS No dizziness, fainting episodes, weakness, fever or hematuria. No chills. No complaint of rectal foreign body. He has had no rectal intercourse. All systems otherwise negative, except as recorded above. PAST HISTORY Peptic Ulcer Disease. Abdominal Pain. Gastroesophageal Reflux Disease. Gastritis. Otitis Media. Hypertension. ADHD. SOCIAL HISTORY Never smoker. ADDITIONAL NOTES The nursing notes have been reviewed. PHYSICAL EXAM Vital Signs: 11/25/2016 10:19 BP: 119/65. HR: 60. RR: 18. O2 saturation: 100%. Temp: 97.6 F. Pain level now: 110. Have been reviewed as normal. Appearance: Alert. Oriented X3. No acute distress. Eyes: Eyes normal inspection. ENT: Pharynx normal. Neck: Normal inspection. CVS: Normal heart rate and rhythm. Heart sounds normal. Respiratory: No respiratory distress. Breath sounds normal. Abdomen: Soft and nontender. Bowel sounds normal. No organomegaly. No mass. Rectal: Strongly heme-positive stool; blood streaks present in the stool; hemoccult quality control operator check passed. (POC test reference range: negative). Brown, bloody stool. Rectal exam nontender. Skin: Skin warm and dry. Normal skin color. No rash. Neuro: Oriented X 3. LABS, X-RAYS, AND EKG Abdominal CT: 1. Near complete decompression of the colon without significant inflammation. This is nonspecific, can be physiologic, but can also be seen in response to occult hemorrhage. No CT evidence of acute colitis or diverticulosis. Occult inflammatory process cannot be excluded with the colon decompressed. Colonoscopy is recommended. 2. Otherwise unremarkable CT of the abdomen and pelvis. Study type: abdomen and pelvis. Abdominal CT performed with IV contrast. Prior studies were not available for comparison. The study was interpreted by the radiologist and discussed with the radiologist. Interpretation time: 13:26. Laboratory Tests: UA-Culture if indicated: (LUCIEN: 11/25/2016 12:05) ( [facility] 11/25/2016 12:32) Final results Test Result Flag Units (Reference) URINE COLOR YELLOW URINE APPEARANCE CLEAR URINE GLUCOSE NEGATIVE (NEGATIVE) URINE BILIRUBIN NEGATIVE (NEGATIVE) URINE KETONE NEGATIVE (NEGATIVE) URINE SPECIFIC GRAVITY <= 1.005 L (1.010-1.030) URINE PH 6.0 (5.0-8.0) URINE PROTEIN NEGATIVE (NEGATIVE) URINE UROBILINOGEN 0.2 EU/dL (0.2-1.0) URINE NITRITE NEGATIVE (NEGATIVE) URINE BLOOD NEGATIVE (NEGATIVE) URINE LEUK ESTERASE NEGATIVE (NEGATIVE) URINE RBC RARE rbc/hpf (0-1) URINE WBC NONE SEEN wbc/hpf (0-1) URINE EPITHELIAL CELLS 0-1 EPI/hpf (0-5) URINE BACTERIA NONE SEEN (NONE SEEN) URINE COMMENT CULT NOT INDICATED URINE CULTURES ARE SET-UP BASED ON THE FOLLOWING CRITERIA:POSITIVE NITRITEPOSITIVE LEUKOCYTE ESTERASEGREATER THAN 10 WHITE BLOOD CELLSMODERATE (2+) OR GREATER BACTERIA CBC w Diff: (LUCIEN: 11/25/2016 10:40) ( [facility] 11/25/2016 11:18) Final results Test Result Flag Units (Reference) WHITE BLOOD COUNT 5.4 K/uL (4.5-11.5) RED BLOOD COUNT 5.44 M/uL (4.50-5.90) HEMOGLOBIN 17.1 gm/dL (13.5-17.5) HEMATOCRIT 50.3 % (41.0-53.0) MEAN CELL VOLUME 93 fL (80-100) MEAN CORPUSCULAR HGB 32 pg (26-34) MEAN CORPUSCULAR HGB CONC 34 g/dL (31-37) RED CELL DISTRIBUTION WIDTH 13.1 % (11.6-14.8) PLATELET COUNT 174 K/uL (150-400) NEUTROPHIL % 65.5 % (50-75) LYMPH % 23.9 L % (25-40) MONO % 7.6 % (3-14) EOSINOPHIL % 2.5 % (0-4) BASOPHIL % 0.5 % (0-2) PT with INR: (LUCIEN: 11/25/2016 10:40) ( [facility] 11/25/2016 11:28) Final results Test Result Flag Units (Reference) INR 1.1 (0.8-1.2) Low Intensity Therapy: INR 1.5-2.0 PT range 18.5-23.1Mod.Intensity Therapy: INR 2.0-3.0 PT range 23.1-31.5High Intensity Therapy: INR 2.5-3.5 PT range 27.4-35.5High Intensity Therapy 2: INR 3.0-4.0 PT range 31.5-39.3 APTT 30 SECONDS (24-34) CMP: (LUCIEN: 11/25/2016 10:40) ( [facility] 11/25/2016 11:24) Final results Test Result Flag Units (Reference) GLUCOSE 101 mg/dL (70-110) BUN 18 mg/dL (7-18) CREATININE 1.0 mg/dL (0.6-1.3) Estimated GFR >60 mL/min Estimated GFR- >60 mL/min Note: Persistent reduction over 3 months in eGFR<60 mL/min/1.73 m2 defines CKD. Patients with eGFR values>=60 mL/min/1.73 m2 may also have CKD if evidence ofpersistent proteinuria. Additional information may be foundat www.kidney.org. SODIUM 141 mmol/L (136-145) POTASSIUM 3.8 mmol/L (3.5-5.1) CHLORIDE 106 mmol/L (98-107) CARBON DIOXIDE 28 mmol/L (21-32) CALCIUM 9.0 mg/dL (8.5-10.1) TOTAL PROTEIN 7.6 g/dL (6.4-8.2) ALBUMIN 4.4 g/dL (3.3-5.0) BILIRUBIN, TOTAL 0.7 mg/dL (0.0-1.0) ALKALINE PHOSPHATASE 111 U/L (46-116) AST (SGOT) 16 U/L (15-37) ALT (SGPT) 18 U/L (12-78) . PROGRESS AND PROCEDURES Discussed case with on-call health care provider, (Dr. Cortes, [place] for outpt colonoscopy). Reviewed test results and need for additional work-up. Health care provider will see patient in office. Disposition: Discharged home in good and improved condition. Condition: good. CLINICAL IMPRESSION Minor GI bleed with hematochezia. INSTRUCTIONS Warnings: GENERAL WARNINGS: Return or contact your physician immediately if your condition worsens or changes unexpectedly, if not improving as expected, or if other problems arise. If the bleeding worsens or if you feel faint. Your Current Medications: CONTINUE TAKING THE FOLLOWING MEDICATIONS: Acetaminophen Oral. Follow-up: Screening today revealed the patient's blood pressure to be in the normal range. Follow-up with: [facility], , , [address], , [place], [address] Follow up in about four. Reason for referral: Discuss the need for surgical or gastroenterology referral for colonoscopy. (Electronically signed by Yoshi Landis Dr. 11/26/2016 23:16)
--- NOTE | 2016-11-25 15:40 | ED ORDER SUMMARY ---
..... Patient: JASMIN GOTTI OrderSheet [facility] VisitID: [id number] [place] [address] 21y, M Registration Date/Time: 11/25/2016 ORDER SHEET Weight: 68.0 kg (stated) Allergies: No Known Drug Allergy GENERAL ORDERS: CBC w Diff Urgent (11:11/25/2016 Racheal Brown) (Ack 11:12 TBergley) (11:21 DDean R.N.) CMP Urgent (11:11/25/2016 Racheal Brown) (Ack 11:12 TBergley) (11:21 DDean R.N.) UA-Culture if indicated Urgent (11:11/25/2016 Racheal Brown) (Ack 11:12 TBergley) (14:50 LAbe R.N.) PT with INR Urgent (11:11/25/2016 Racheal Brown) (Ack 11:12 TBergley) (11:21 DDean R.N.) PTT Urgent (11:11/25/2016 Racheal Brown) (Ack 11:12 TBergley) (11:21 DDean R.N.) CT Abd/Pel w Cont (No) (N/A) Urgent (12:11/25/2016 Racheal Brown) (Ack 12:21 TBergley) (14:50 LAbe R.N.) MEDICATION ORDERS: IV FLUIDS: Famotidine IV 20 mg/50mL (NOW) (11:11/25/2016 Racheal Brown) (Ack 11:39 Valorie R.N.) (11:51 Valorie R.N.) IV Saline Lock (11:11/25/2016 Racheal Brown) (11:39 Valorie R.N.) ORDER SHEET NOTES: [Electronically signed by Mariya Manzo R.N. (17:33 11/25/2016)] [Electronically signed by Yoshi Landis Dr. (23:16 11/26/2016)] [Electronically locked/signed by Mariya Manzo R.N. (17:33 11/25/2016)]
--- NOTE | 2016-11-25 15:40 | ED NURSING NOTES ---
Clinical Report - Nurses [facility] [address] [place] [address] 11/25/2016 10:09 Patient: JASMIN GOTTI TRIAGE Triage time 10:19. Acuity: LEVEL 3. Chief Complaint: RECTAL BLEED. Alert. No acute distress. YANIV COMA SCORE: [place] Coma Scale: 15- eyes open spontaneously (4); best verbal response- oriented x 4 (5); best motor response- obeys commands (6). --10:24 Mariya Manzo R.N. 10:19 11/25/16. BP: 119/65. HR: 60. RR: 18. O2 saturation: 100%. Temp: 97.6 F. Pain level now: 06/22. --10:24 Mariya Manzo R.N. Weight: 68 kg stated. Height/Length: 72 inches Per Patient. BMI: 20.3. --10:21 Mariya Manzo R.N. Medications Acetaminophen Oral. --10:20 Mariya Manzo R.N. Medication/allergy information source: the patient. --10:24 Mariya Manzo R.N. Allergies No Known Drug Allergy. --10:20 Mariya Manzo R.N. History Arrived by private vehicle. Historian: patient. Accompanied by family. Primary physician (none). This started today. SOCIAL HX: Never smoker. Occasional alcohol use. (recently). History of drug use: marijuana. FALL RISK ASSESSMENT: Fall risk assessment completed. No fall risk identified. FUNCTIONAL ASSESSMENT: Functional assessment: no impairments noted. LEARNING NEEDS ASSESSMENT: The learning needs assessment revealed no barriers. --10:24 Mariya Manzo R.N. PROBLEMS: Peptic Ulcer Disease. Abdominal Pain. Gastroesophageal Reflux Disease. Gastritis. Otitis Media. Hypertension. Immunizations. ADHD - Attention Deficit Hyperactivity Disorder. --10:21 Mariya Manzo R.N. ADDITIONAL SURGERIES: no known surgeries. Assessment GENERAL / NEURO / PSYCH: Alert. Oriented X 4. Appears in no acute distress. Patient appears calm and cooperative. RESPIRATORY: Respirations not labored. SKIN: Skin is warm and dry. --10:24 Mariya Manzo R.N. Interventions ID band on patient. To treatment room. --10:24 Mariya Manzo R.N. PHYSICAL ASSESSMENT 10:53 11/25/16. Ambulatory to room. Patient gowned. GENERAL / NEURO / PSYCH: Alert. Oriented X 4. Appears in no acute distress. RESPIRATORY: Respirations not labored. SKIN: Skin is warm and dry. --10:53 Mariya Manzo R.N. NURSING PROGRESS NOTES 10:53 11/25/16. Patient gowned. Head of bed elevated. Reassurance given. Call light placed in reach. Side rails up x 1. Bed placed in lowest position. Brakes of bed on. --10:53 Mariya Manzo R.N. 10:54 11/25/2016 Site #1 started via IV in the right antecubital space with an 18g angiocath, with aseptic technique and good blood return; one attempt. Blood drawn: rainbow set. Labeled in the presence of the patient and sent to the lab. Saline lock flushed with 10 mL saline (Blood Banded). --10:54 Mariya Manzo R.N. 11:51 11/25/2016 Started 20 mg of Famotidine IVPB in bag #1 50 mL; at 150 mL/hr over 20 minute(s) via site #1; Allergies verified and confirmed 5 rights. IV patency established. IV site checked: no pain, redness, or swelling. IV flushed thoroughly pre- and post-medication administration. --11:51 Mariya Manzo R.N. 12:10 11/25/16. The patient is resting quietly. Overall patient status is the same- he states feels the same. RESPIRATORY: No respiratory distress. SKIN: Skin is warm and dry. --12:10 Mariya Manzo R.N. 12:10 11/25/16. BP: 115/58. HR: 86. RR: 16. O2 saturation: 100% on room air. --12:10 Mariya Manzo R.N. 12:10. :patient confirmed. Clean catch urine collected; sample sent to lab. Specimen labeled in the presence of the patient (voided 300 ml per urinal). --12:32 Mariya Manzo R.N. 13:50. Informed about reason for wait (discharge plan). --14:25 Mariya Manzo R.N. 14:50. The patient is resting quietly. --16:34 Mariya Manzo R.N. 15:50. The patient is calm and resting quietly. Overall patient status is the same- he states feels the same. RESPIRATORY: No respiratory distress. SKIN: Skin is warm and dry. --16:35 Mariya Manzo R.N. DISPOSITION / DISCHARGE Departure time: 1550. Condition at departure: stable. No learning barriers present. Discharge instructions provided and reviewed with the patient. Patient verbalized understanding. Written instructions provided in Armenian. The patient was discharged home and accompanied by nuclear reactor operator. He left the Emergency Department ambulatory and via private vehicle. FALL RISK ASSESSMENT: Fall risk assessment completed. No fall risk identified. --16:36 Mariya Manzo R.N. 15:50 11/25/16. BP: 117/59. HR: 65. RR: 16. O2 saturation: 100%. Pain level now: 07/23. --16:36 Mariya Manzo R.N. Locked/Released at 11/25/2016 17:33 by Mariya Manzo R.N.
--- NOTE | 2016-11-26 23:16 | ED DISCHARGE INSTRUCTIONS ---
Patient: JASMIN GOTTI General Instructions [facility] VisitID: [id number] [address] [place] [address] 21y, M Registration Date/Time: 11/25/2016 Minor GI bleed with hematochezia. INSTRUCTIONS Warnings: GENERAL WARNINGS: Return or contact your physician immediately if your condition worsens or changes unexpectedly, if not improving as expected, or if other problems arise. If the bleeding worsens or if you feel faint. Your Current Medications: CONTINUE TAKING THE FOLLOWING MEDICATIONS: Acetaminophen Oral. Follow-up: Screening today revealed the patient's blood pressure to be in the normal range. Follow-up with: [facility], , , [address], [place], [address] Follow up in about four. Reason for referral: Discuss the need for surgical or gastroenterology referral for colonoscopy. ADDITIONAL INFORMATION Rectal Bleeding (Stable) Your exam today shows signs of blood in the stool. This is called rectal bleeding, because the blood passes through the rectum. However, the blood may not be coming from the rectum. Blood in the stool may be red or black in color. Red blood in the stool usually comes from the lower gastro-intestinal (GI) tract. This may be due to diverticulosis, polyps, colon inflammation or infection, anal fissure or hemorrhoids. In persons over 50 tumors and cancer of the intestinal tract may first show up as red blood in the stool. Upper GI bleeding causes the stool to turn black. This may occur with bleeding from the esophagus, stomach, duodenum or small intestine. Very small amounts of GI bleeding may not be visible and can only be discovered on a chemical test of the stool. You have not lost a large amount of blood and your condition appears stable at this time. It is very important to have a follow-up exam to determine the exact cause of your bleeding. Home Care: 1) You may resume normal activity as long as you feel well. 2) Avoid aspirin and anti-inflammatory drugs such as ibuprofen (Advil, Motrin) and naproxen (Aleve and Naprosyn). You may use acetaminophen (Tylenol) for pain. [ NOTE : If you have chronic liver disease, talk with your doctor before using acetaminophen.] 3) Avoid alcohol. Follow Up with your doctor or as advised by our medical staff. It is very important that you have further tests done to find the cause of your bleeding. Get Prompt Medical Attention if any of the following occur: -- Large amount of rectal bleeding (more than 1 cup of blood in 24 hours) -- Increasing abdominal pain -- Weakness, dizziness or fainting -- Vomiting blood (red or black color) You have been given the following additional information: Rectal Bleed, Stable (Electronically signed by Yoshi Landis Dr. 11/26/2016 23:16)
--- NOTE | 2016-11-26 23:16 | ED MED RECONCILIATION SUMMARY ---
Patient: MARCO ANTONIO GOTTIIEL Gwendolyn Medication Reconciliation Report [facility] VisitID: [id number] [address] [place] [address] 21y, M Registration Date/Time: 11/25/2016 Weight: 68.0 kg Height/Length: 72 in. BMI: 20.3 ALLERGIES: No Known Drug Allergy The patient's Home Medications are listed below: CONTINUE TAKING THE FOLLOWING MEDICATIONS: Acetaminophen Oral The source(s) of the original Home Medication information: patient The following Medications were given to the patient in the Emergency Department: Famotidine [IVPB] IVPB bolus 0, then 20 mg 150 mL/hr, administered: 11/25/2016 11:51:00 AM The following Medications were prescribed to the patient: None.
--- NOTE | 2016-11-26 23:16 | ED MAR SUMMARY ---
..... Medication Administration Record [facility] [address] [place] [address] Patient: JASMIN GOTTI Visit ID: [id number] 21y, M Weight: 68.0 kg Height/Length: 72 in BMI: 20.3 ALLERGIES: No Known Drug Allergy Start 11:51 11/25/2016 Mariya Manzo RMontse Medication Administered: FAMOTIDINE [IVPB], Dose: 20 mg IVPB over 20 minute(s), Rate: 150 mL/hr, Dispensed: 50 mL bag, Site: #1 right AC. Medication Ordered: Famotidine IV 20 mg/50mL (NOW).
--- NOTE | 2016-11-26 23:16 | ED DISCHARGE INSTRUCTIONS ---
Patient: JASMIN GOTTI General Instructions [facility] VisitID: [id number] [address] [place] [address] 21y, M Registration Date/Time: 11/25/2016 Minor GI bleed with hematochezia. INSTRUCTIONS Warnings: GENERAL WARNINGS: Return or contact your physician immediately if your condition worsens or changes unexpectedly, if not improving as expected, or if other problems arise. If the bleeding worsens or if you feel faint. Your Current Medications: CONTINUE TAKING THE FOLLOWING MEDICATIONS: Acetaminophen Oral. Follow-up: Screening today revealed the patient's blood pressure to be in the normal range. Follow-up with: [facility], , , [address], [place], [id number] Follow up in about four. Reason for referral: Discuss the need for surgical or gastroenterology referral for colonoscopy. ADDITIONAL INFORMATION Rectal Bleeding (Stable) Your exam today shows signs of blood in the stool. This is called rectal bleeding, because the blood passes through the rectum. However, the blood may not be coming from the rectum. Blood in the stool may be red or black in color. Red blood in the stool usually comes from the lower gastro-intestinal (GI) tract. This may be due to diverticulosis, polyps, colon inflammation or infection, anal fissure or hemorrhoids. In persons over 50 tumors and cancer of the intestinal tract may first show up as red blood in the stool. Upper GI bleeding causes the stool to turn black. This may occur with bleeding from the esophagus, stomach, duodenum or small intestine. Very small amounts of GI bleeding may not be visible and can only be discovered on a chemical test of the stool. You have not lost a large amount of blood and your condition appears stable at this time. It is very important to have a follow-up exam to determine the exact cause of your bleeding. Home Care: 1) You may resume normal activity as long as you feel well. 2) Avoid aspirin and anti-inflammatory drugs such as ibuprofen (Advil, Motrin) and naproxen (Aleve and Naprosyn). You may use acetaminophen (Tylenol) for pain. [ NOTE : If you have chronic liver disease, talk with your doctor before using acetaminophen.] 3) Avoid alcohol. Follow Up with your doctor or as advised by our medical staff. It is very important that you have further tests done to find the cause of your bleeding. Get Prompt Medical Attention if any of the following occur: -- Large amount of rectal bleeding (more than 1 cup of blood in 24 hours) -- Increasing abdominal pain -- Weakness, dizziness or fainting -- Vomiting blood (red or black color) You have been given the following additional information: Rectal Bleed, Stable (Electronically signed by Yoshi Landis Dr. 11/26/2016 23:16)
--- NOTE | 2016-11-26 23:16 | ED MED RECONCILIATION SUMMARY ---
Patient: MARCO ANTONIO GOTTIIEL Gwendolyn Medication Reconciliation Report [facility] VisitID: [id number] [address] [place] [address] 21y, M Registration Date/Time: 11/25/2016 Weight: 68.0 kg Height/Length: 72 in. BMI: 20.3 ALLERGIES: No Known Drug Allergy The patient's Home Medications are listed below: CONTINUE TAKING THE FOLLOWING MEDICATIONS: Acetaminophen Oral The source(s) of the original Home Medication information: patient The following Medications were given to the patient in the Emergency Department: Famotidine [IVPB] IVPB bolus 0, then 20 mg 150 mL/hr, administered: 11/25/2016 11:51:00 AM The following Medications were prescribed to the patient: None.
--- NOTE | 2016-11-26 23:16 | ED MAR SUMMARY ---
..... Medication Administration Record [facility] [address] [place] [address] Patient: JASMIN GOTTI Visit ID: [id number] 21y, M Weight: 68.0 kg Height/Length: 72 in BMI: 20.3 ALLERGIES: No Known Drug Allergy Start 11:51 11/25/2016 Mariya Manzo RMontse Medication Administered: FAMOTIDINE [IVPB], Dose: 20 mg IVPB over 20 minute(s), Rate: 150 mL/hr, Dispensed: 50 mL bag, Site: #1 right AC. Medication Ordered: Famotidine IV 20 mg/50mL (NOW).
== END 2016-11-25 15:50 | disposition home or self-care (01) ==
LOC: ED SRH 10:08
DX: K92.2 Gastrointestinal hemorrhage, unspecified (principal); K92.1 Melena; K21.9 Gastro-esophageal reflux disease without esophagitis; I10 Essential (primary) hypertension
CPT/HCPCS: 90004; 90100; 94001; 94060; 95059